=== PATIENT | female | born 1970 | race Caucasian/White ===

== ENCOUNTER 2017-06-05 13:23 | Emergency (ER) | payer MEDICAID ==
--- NOTE | 2017-06-05 13:30 | Emergency Department Record ---
History of Present Illness - General Chief Complaint: Abdominal Pain Stated Complaint: ABD PAIN Time Seen by Provider: 06/05/17 13:29 - Related Data Home Medications Medication Instructions Recorded Confirmed Last Taken Amitriptyline HCl 150 mg PO DAILY 06/05/17 06/05/17 1 Day Ago ~06/04/17 Atorvastatin Calcium [Lipitor] 10 mg PO DAILY 06/05/17 06/05/17 1 Day Ago ~06/04/17 Escitalopram Oxalate [Lexapro] 20 mg PO DAILY 06/05/17 06/05/17 1 Day Ago ~06/04/17 Losartan Potassium [Cozaar] 50 mg PO DAILY 06/05/17 06/05/17 1 Day Ago ~06/04/17 Previous Rx's Medication Instructions Recorded Dicyclomine HCl [Bentyl] 10 mg PO Q8H #20 cap 06/05/17 Hydrocodone/Acetaminophen [[place] 1 each PO Q6HR #6 tablet 06/05/17 5-325 Tablet] Prednisone [Prednisone 20Mg] 20 mg PO BID #10 tab 06/05/17 Allergies Allergy/AdvReac Type Severity Reaction Status Date / Time Fish Containing Products Allergy SWELLING Verified 06/05/17 13:36 (GENERAL) prochlorperazine Allergy HYPERSENSIT Verified 06/05/17 13:36 [From Compazine] IVITY Sulfa (Sulfonamide Allergy HIVES Verified 06/05/17 13:36 Antibiotics) sulfamethoxazole Allergy HIVES Verified 06/05/17 13:36 [From Bactrim] trimethoprim [From Bactrim] Allergy HIVES Verified 06/05/17 13:36 Medical Decision Making - Lab Data Result diagrams: 06/05/17 13:57 06/05/17 13:57 Disposition Clinical Impression: Diarrhea, RLQ abdominal pain, Colitis, Viral syndrome Disposition: Home, Self-Care Condition: (2) Stable Instructions: Acute Diarrhea (ED) Additional Instructions: clear liquids for 24 hours follow up with family in 2 days or return to ED if worse bentyl three times aday Prescriptions: Hydrocodone/Acetaminophen [[place] 5-325 Tablet] 1 each PO Q6HR #6 tablet Dicyclomine HCl [Bentyl] 10 mg PO Q8H #20 cap Prednisone [Prednisone 20Mg] 20 mg PO BID #10 tab Forms: Patient Portal Access Quality - Quality Measures Quality Measures: N/A - Blood Pressure Screening Does Patient Have Any of the Following: No Blood Pressure Classification: Pre-Hypertensive BP Reading Systolic Measurement: 146 Diastolic Measurement: 89 Screening for High Blood Pressure: < Pre-Hypertensive BP, F/U Documented > [ G8950] Pre-Hypertensive Follow-up Interventions: Referral to alternative/primary care provider.
--- NOTE | 2017-06-05 13:51 | Emergency Department Record ---
History of Present Illness - General Chief Complaint: Abdominal Pain Stated Complaint: ABD PAIN Time Seen by Provider: 06/05/17 13:29 Source: Patient, RN notes reviewed Mode of Arrival: Ambulatory - History of Present Illness Initial Comments: diarrhea for 4 days 15 times per day. No vomiting and she does have nausea. Ate cereal today. No antibiotic use in one month. No friends of family with diarrhea. bilateral lower abd pain. Patient at [place] urgent [facility] and sent to ED for a CT scan. Onset/Timin -: Days(s) Location: Diffuse, LUQ, RUQ, LLQ, RLQ Severity: Moderate Quality: Aching Consistency: Constant Improves With: Nothing Worsens With: Nothing - Related Data Patient : No (hyster) Home Medications Medication Instructions Recorded Confirmed Last Taken Amitriptyline HCl 150 mg PO DAILY 06/05/17 06/05/17 1 Day Ago ~06/04/17 Atorvastatin Calcium [Lipitor] 10 mg PO DAILY 06/05/17 06/05/17 1 Day Ago ~06/04/17 Escitalopram Oxalate [Lexapro] 20 mg PO DAILY 06/05/17 06/05/17 1 Day Ago ~06/04/17 Losartan Potassium [Cozaar] 50 mg PO DAILY 06/05/17 06/05/17 1 Day Ago ~06/04/17 Previous Rx's Medication Instructions Recorded Dicyclomine HCl [Bentyl] 10 mg PO Q8H #20 cap 06/05/17 Hydrocodone/Acetaminophen [[place] 1 each PO Q6HR #6 tablet 06/05/17 5-325 Tablet] Prednisone [Prednisone 20Mg] 20 mg PO BID #10 tab 06/05/17 Allergies Allergy/AdvReac Type Severity Reaction Status Date / Time Fish Containing Products Allergy SWELLING Verified 06/05/17 13:36 (GENERAL) prochlorperazine Allergy HYPERSENSIT Verified 06/05/17 13:36 [From Compazine] IVITY Sulfa (Sulfonamide Allergy HIVES Verified 06/05/17 13:36 Antibiotics) sulfamethoxazole Allergy HIVES Verified 06/05/17 13:36 [From Bactrim] trimethoprim [From Bactrim] Allergy HIVES Verified 06/05/17 13:36 Travel Screening - Travel/Exposure Within Last 30 Days Have you traveled within the last 30 days?: No - Travel/Exposure Within Last Year Have you traveled outside the [place] in the last year?: No - Additonal Travel Details Have you been exposed to anyone with a communicable illness?: No - Travel Symptoms Symptom Screening: None Review of Systems Reviewed: No additional complaints except as noted below Constitutional: Reports: As per HPI. Denies: Chills, Fever, Malaise, Night sweats, Weakness, Weight change Eyes: Reports: As per HPI. Denies: Eye discharge, Eye pain, Photophobia, Vision change ENT: Reports: As per HPI. Denies: Congestion, Dental pain, Ear pain, Epistaxis , Hearing loss, Throat pain Respiratory: Reports: As per HPI. Denies: Cough, Dyspnea, Hemoptysis, Stridor, Wheezes Cardiovascular: Reports: As per HPI. Denies: Arrhythmia, Chest pain, Dyspnea on exertion, Edema, Murmurs, Orthopnea, Palpitations, Paroxysmal nocturnal dyspnea, Rheumatic Fever, Syncope Endocrine: Reports: As per HPI. Denies: Fatigue, Heat or cold intolerance, Polydipsia, Polyuria Gastrointestinal: Reports: As per HPI, Abdominal pain, Diarrhea. Denies: Constipation, Hematemesis, Hematochezia, Melena, Nausea, Vomiting Genitourinary: Reports: As per HPI. Denies: Abnormal menses, Discharge, Dyspareunia, Dysuria, Frequency, Hematuria, Incontinence, Retention, Urgency Musculoskeletal: Reports: As per HPI. Denies: Arthralgia, Back pain, Gout, Joint swelling, Myalgia, Neck pain Skin: Reports: As per HPI. Denies: Bruising, Change in color, Change in hair/ nails, Lesions, Pruritus, Rash Neurological: Reports: As per HPI. Denies: Abnormal gait, Confusion, Headache, Numbness, Paresthesias, Seizure, Tingling, Tremors, Vertigo, Weakness Psychiatric: Reports: As per HPI. Denies: Anxiety, Auditory hallucinations, Depression, Homicidal thoughts, Suicidal thoughts, Visual hallucinations Hematological/Lymphatic: Reports: As per HPI. Denies: Anemia, Blood Clots, Easy bleeding, Easy bruising, Swollen glands Past Medical History - SOCIAL HISTORY Smoking Status: Current every day smoker Alcohol Use: Rare Drug Use: None - RESPIRATORY Hx Respiratory Disorders: No - CARDIOVASCULAR Hx Hypertension: Yes - NEURO Hx Headaches: Yes (migraines) - GI Hx Abdominal Pain: Yes Hx Reflux: Yes - Hx Genitourinary Disorders: No - ENDOCRINE Hx Diabetes: No Hx Thyroid Disease: No - MUSCULOSKELETAL Hx Musculoskeletal Disorders: No - PSYCH Hx Anxiety: Yes Hx Depression: Yes - HEMATOLOGY/ONCOLOGY Hx Anemia: No Hx Blood Disorders: No Hx Bruising: No Hx Cancer: No Family Medical History Any Significant Family History?: Yes Hx Cancer: Father, Mother, Grandparents Hx HTN: Father, Mother, Grandparents Physical Exam - General General Appearance: Alert, Oriented x3, Cooperative, No acute distress - Head Head exam: Normal inspection - Eye Eye exam: Normal appearance, PERRL Pupils: Normal accommodation - ENT ENT exam: Normal exam, Mucous membranes moist, Normal external ear exam, Normal orophraynx, TM's normal bilaterally Ear exam: Normal external inspection. negative: External canal tenderness Nasal Exam: Normal inspection. negative: Discharge, Sinus tenderness Mouth exam: Normal external inspection, Tongue normal Teeth exam: Normal inspection. negative: Dental caries Throat exam: Normal inspection. negative: Tonsillar erythema, Tonsillar exudate - Neck Neck exam: Normal inspection, Full ROM. negative: Tenderness - Respiratory Respiratory exam: Normal lung sounds bilaterally. negative: Respiratory distress - Cardiovascular Cardiovascular Exam: Regular rate, Normal rhythm, Normal heart sounds - GI/Abdominal GI/Abdominal exam: Soft, Normal bowel sounds, Tenderness (right lower quad pain and some left sided lower abd pain) - Rectal Rectal exam: Deferred - exam: Deferred - Extremities Extremities exam: Normal inspection, Full ROM, Normal capillary refill. negative: Tenderness - Back Back exam: Reports: Normal inspection, Full ROM. Denies: Muscle spasm, Rash noted, Tenderness - Neurological Neurological exam: Alert, Normal gait, Oriented X3, Reflexes normal - Psychiatric Psychiatric exam: Normal affect, Normal mood - Skin Skin exam: Dry, Intact, Normal color, Warm Course Vital Signs 06/05/17 13:25 Temperature 98.7 F Pulse Rate 98 H Respiratory 16 Rate Blood Pressure 146/89 Pulse Ox 97 - Reevaluation(s) Reevaluation #1: Patient having intermittent abdominal pain and CT of abd shows thickening of the cecum and inflamatory changes 06/05/17 15:07 06/05/17 15:17 06/05/17 15:34 Reevaluation #2: feeling better 06/05/17 16:33 Medical Decision Making - Data Complexity MDM Data: Labs Ordered and/or Reviewed (wbc 12,500), X-Ray Ordered and/or Reviewed (CT thickening near cecum, inflamatory changes) - Lab Data Result diagrams: 06/05/17 13:57 06/05/17 13:57 Disposition Clinical Impression: RLQ abdominal pain, Colitis, Viral syndrome Diarrhea Qualifiers: Diarrhea type: unspecified type Qualified Code(s): R19.7 - Diarrhea, unspecified Disposition: Home, Self-Care Condition: (2) Stable Instructions: Acute Diarrhea (ED) Additional Instructions: clear liquids for 24 hours follow up with family in 2 days or return to ED if worse bentyl three times aday Prescriptions: Hydrocodone/Acetaminophen [[place] 5-325 Tablet] 1 each PO Q6HR #6 tablet Dicyclomine HCl [Bentyl] 10 mg PO Q8H #20 cap Prednisone [Prednisone 20Mg] 20 mg PO BID #10 tab Forms: Patient Portal Access Time of Disposition: 16:36 Quality - Quality Measures Quality Measures: N/A - Blood Pressure Screening Does Patient Have Any of the Following: No Blood Pressure Classification: Pre-Hypertensive BP Reading Systolic Measurement: 146 Diastolic Measurement: 89 Screening for High Blood Pressure: < Pre-Hypertensive BP, F/U Documented > [ G8950] Pre-Hypertensive Follow-up Interventions: Referral to alternative/primary care provider.
[2017-06-05] MEDS ORDERED: 0.9 % SODIUM CHLORIDE 1,000 ML BAG IV ONE (13:52)
[2017-06-05] MEDS ORDERED: ONDANSETRON HCL IV 4 MG/2 ML VIAL IVP ONE (14:03)
[2017-06-05 14:07] LABS: BASO % 0.3 % (0-6); EOS % 1.5 % (0-6); GRAN % 63.1 % (47-80); HEMATOCRIT 44.4 % (35.0-47.0); HEMOGLOBIN 15.1 gm/dl (11.6-16.0); LYMPH % 26.7 % (16-45); MEAN CORPUSCULAR HEMOGLOBIN 30.9 pg (27-33); MEAN PLATELET VOLUME 9.7 fl (7.4-10.4); MONO % 8.4 % (0-9); PLATELET COUNT 331 K/uL (130-400); RED BLOOD COUNT 4.88 M/uL (3.80-5.40); RED CELL DISTRIBUTION WIDTH 13.9 % (11.5-14.5); WHITE BLOOD COUNT W/O DIFF 12.5 K/uL (4.2-12.2)
[2017-06-05 14:15] LABS: URINE APPEARANCE CLEAR; URINE BILIRUBIN NEGATIVE (NEGATIVE); URINE BLOOD NEGATIVE (NEGATIVE); URINE COLOR YELLOW; URINE GLUCOSE (UA) NEGATIVE (NEGATIVE); URINE KETONE NEGATIVE (NEGATIVE); URINE LEUKOCYTE ESTERASE NEGATIVE (NEGATIVE); URINE NITRITE NEGATIVE (NEGATIVE); URINE PROTEIN NEGATIVE (NEGATIVE); URINE UROBILINOGEN 0.2 E.U./dL (0.20 - 1.00)
[2017-06-05 14:21] LABS: BLOOD UREA NITROGEN 14 mg/dL (6-20); CREATININE 0.7 mg/dL (0.5-0.9); EST GLOMERULAR FILTRATION RATE > 60 mL/min
[2017-06-05 14:22] LABS: TOTAL PROTEIN 7.3 g/dL (6.6-8.7)
[2017-06-05 14:24] LABS: GLUCOSE,RANDOM 93 mg/dL (74-109)
[2017-06-05 14:26] LABS: ALBUMIN 4.5 g/dL (4.0-5.0); ALKALINE PHOSPHATASE 111 U/L (35-104); ALT/SGPT 41 U/L (<33); AST/SGOT 20 U/L (10.0-35.0); LIPASE 24 U/L (13-60)
[2017-06-05 14:30] LABS: BILIRUBIN,DIRECT < 0.2 mg/dL (0-0.3)
[2017-06-05] MEDS ORDERED: METHYLPREDNISOLONE SOD 40MG/VIAL IVP ONE (15:23)
[2017-06-05] MEDS ORDERED: KETOROLAC 30 MG/ML VIAL IVP ONE (15:30)
[2017-06-05] MEDS ORDERED: DICYCLOMINE HCL 10 MG/ML AMPUL IM ONE (15:30)
--- NOTE | 2017-06-06 23:39 | CT SCAN REPORT ---
EXAM: CT SCAN ABDOMEN/PELVIS WO CONTRAST HISTORY: PATIENT HAS GENERALIZED ABDOMINAL PAIN AND DIARRHEA. TECHNIQUE: Serial axial CT scan of the abdomen and pelvis was performed at 2.5 mm intervals from the dome of the diaphragm down to the pubic symphysis without the use of intravenous or oral contrast. No comparison studies area available. FINDINGS: Lung windows of the lung bases demonstrate linear subsegmental atelectasis and/or scarring at the left lung base. No focal consolidation or pleural effusion is identified. The visualized heart size and contour is within normal limits. Minimal pericardial fluid is noted. The liver, spleen, pancreas, bilateral adrenal glands, and gallbladder are unremarkable. There is no CT evidence of hydronephrosis or hydroureter. No renal or ureteral calculi are noted. The contour, caliber, of the noncontrasted abdominal aorta is within normal limits. There is no CT evidence of retroperitoneal, pelvic, or inguinal lymphadenopathy. The bowel gas pattern is nonobstructive. There is thickening of the cecal wall extending into the mid ascending colon. There is thickening of the distal terminal ileal wall. There is fatty proliferation of the ascending colon and cecal wall as well. Pericolonic fat stranding surrounding the cecum is also identified. These findings suggest inflammatory changes. Postoperative changes of the appendix are identified. Therefore, I suspect these findings are likely related to infectious vs. inflammatory etiologies. There is no CT evidence of free intraperitoneal fluid or free intraperitoneal air. The urinary bladder is unremarkable. The uterus is absent. Bone windows demonstrate no CT evidence of a fracture or dislocation of the visualized osseous structures. IMPRESSION: THERE IS THICKENING OF THE CECAL WALL EXTENDING INTO THE MID ASCENDING COLON. THERE IS FAT INFILTRATION INTO THE CECAL WALL EXTENDING INTO THE MID ASCENDING COLON WELL. PERICOLONIC FAT STRANDING IS IDENTIFIED. THICKENING OF THE DISTAL TERMINAL ILEUM IS ALSO IDENTIFIED. THESE FINDINGS SUGGEST INFECTIOUS VS. INFLAMMATORY ETIOLOGIES. CLINICAL CORRELATION FOR ULCERATIVE COLITIS AND/OR CROHN'S DISEASE IS RECOMMENDED. JOB NUMBER: [id number] [facility]
== END 2017-06-05 16:51 | disposition home or self-care (01) ==
LOC: ER 13:23
DX: K52.9 Noninfective gastroenteritis and colitis, unspecified (principal); R10.31 Right lower quadrant pain; B34.9 Viral infection, unspecified; R11.0 Nausea; F17.210 Nicotine dependence, cigarettes, uncomplicated
CPT/HCPCS: 99284 ×2; 96374; 96372; 96375; 96361; 83690; 85025; 80076; 80048; 81003; 87427; 87493; 74176; J1885; J2405; J2920; J7030

== ENCOUNTER 2017-11-10 16:30 | Emergency (ER) | payer MEDICAID ==
[2017-11-10] MEDS ORDERED: KETOROLAC 30 MG/ML VIAL IM ONE (16:49)
--- NOTE | 2017-11-10 16:58 | Emergency Department Record ---
History of Present Illness - General Chief Complaint: Recheck - Other Stated Complaint: carpal tunnel surgery/cant get pain under control Time Seen by Provider: 11/10/17 16:43 Source: Patient Mode of arrival: Ambulatory Limitations: No limitations - History of Present Illness Initial Comments: The patient is here due to R wrist and hand pain. She had carpal tunnel surgery yesterday at [facility] by Dr. Smith. Now the R wrist and hand are very painful and swollen. She has had carpal tunnel surgery on the L wrist in the recent past and it was not like this. She denies any finger numbness but her hand does feel swollen. The wound had been draining per the patient and she did soak thru her initial bandage but now the wound is dry. MD Complaint: Wound re-check Onset/Timin -: Days(s) Initial Visit For: Other Returns Today for: Wound recheck Symptoms Since Prior Visit: Worsening pain Associated Symptoms: None Treatments Prior to Arrival: Dressings - Related Data Home Medications Medication Instructions Recorded Confirmed Last Taken Acetaminop W/ Codeine 300/30Mg 1 tab PO ASDIR 11/10/17 11/10/17 11/10/17 [Tylenol with Codeine #3] Ibuprofen [Ibu] 600 mg PO ASDIR 11/10/17 11/10/17 11/10/17 12:00 Allergies Allergy/AdvReac Type Severity Reaction Status Date / Time Fish Containing Products Allergy SWELLING Verified 11/10/17 16:36 (GENERAL) prochlorperazine Allergy HYPERSENSIT Verified 11/10/17 16:36 [From Compazine] IVITY Sulfa (Sulfonamide Allergy HIVES Verified 11/10/17 16:36 Antibiotics) sulfamethoxazole Allergy HIVES Verified 11/10/17 16:36 [From Bactrim] trimethoprim [From Bactrim] Allergy HIVES Verified 11/10/17 16:36 Travel Screening - Travel/Exposure Within Last 30 Days Have you traveled within the last 30 days?: No - Travel/Exposure Within Last Year Have you traveled outside the [place] in the last year?: No - Additonal Travel Details Have you been exposed to anyone with a communicable illness?: No - Travel Symptoms Symptom Screening: None Review of Systems Constitutional: Denies: Chills, Fever Eyes: Denies: Eye discharge ENT: Denies: Congestion Respiratory: Denies: Cough, Dyspnea Past Medical History - SOCIAL HISTORY Smoking Status: Current every day smoker Alcohol Use: Occasional Drug Use: None - RESPIRATORY Hx Respiratory Disorders: No - CARDIOVASCULAR Hx Cardio Disorders: Yes Hx Hypertension: Yes - NEURO Hx Neuro Disorders: Yes Hx Headaches: Yes (migraines) - GI Hx GI Disorders: Yes Hx Abdominal Pain: Yes Hx Reflux: Yes - Hx Genitourinary Disorders: No - ENDOCRINE Hx Endocrine Disorders: Yes Hx Diabetes: No Hx Thyroid Disease: No - MUSCULOSKELETAL Hx Musculoskeletal Disorders: No - PSYCH Hx Psych Problems: Yes Hx Anxiety: Yes Hx Depression: Yes - HEMATOLOGY/ONCOLOGY Hx Hematology/Oncology Disorders: No Hx Anemia: No Hx Blood Disorders: No Hx Bruising: No Hx Cancer: No Family Medical History Any Significant Family History?: Yes Hx Cancer: Father, Mother, Grandparents Hx HTN: Father, Mother, Grandparents Physical Exam - General General Appearance: Alert, Oriented x3, Cooperative, No acute distress - Head Head exam: Atraumatic, Normocephalic, Normal inspection - Eye Eye exam: Normal appearance, PERRL - Extremities Extremities exam: Normal capillary refill, Tenderness, Other (There is no warmth or erythema or any signs of any infection.). negative: Normal inspection (There is a well approximated wound to the anterior wrist with bruising to the palm and distal anterior forearm. The hand is very minimally swollen. The patient does have normal sensation to the R hand and no pain with passive ROM of her fingers and thumb. She is not able to fully grasp with the R hand due to pain. The bruising at this time is very mild to the anterior wrist and palm and forearm area.), Full ROM, Joint swelling Image of Full Body: 1 - Area of mild bruising and tenderness. - Neurological Neurological exam: Alert. negative: Motor sensory deficit Course Vital Signs 11/10/17 16:40 Temperature 98.8 F Pulse Rate 101 H Respiratory 18 Rate Blood Pressure 165/100 Pulse Ox 94 L - Reevaluation(s) Reevaluation #1: The patient is doing better after the Toradol. I did discuss the issues with Dr. Smith and he will try to have the patient seen in his office tomorrow or Wednesday. He does agree with the plan to discharge for home. 11/10/17 17:24 Reevaluation #2: The patient is doing better at this time. She does have normal sensation to her fingers and thumb. There is no pain with passive ROM of the fingers and thumb. I do not see any evidence of a compartment syndrome at this time. I also have discussed the findings at length with Dr. Smith and he is going to have the patient seen in his office by his partner tomorrow or Wednesday. 11/10/17 17:46 Disposition Disposition: Discharge Clinical Impression: Post-op pain Disposition: Home, Self-Care Condition: (2) Stable Instructions: Acute Wound Care (ED) Additional Instructions: Please continue the ice and elevation as directed. Please continue your pain medicines as directed. Please be seen in Dr. Salazar's office tomorrow or Wednesday. Return to the ER for any worsening symptoms. Forms: Patient Portal Access Time of Disposition: 17:45 Quality - Quality Measures Quality Measures: N/A - Blood Pressure Screening View Details: Yes Does Patient Have Any of the Following: No Blood Pressure Classification: Hypertensive Reading Systolic Measurement: 152 Diastolic Measurement: 94 Screening for High Blood Pressure: < First Hypertensive BP, F/U Documented > [ G8950] First Hypertensive Follow-up Interventions: Referral to alternative/primary care provider.
[2017-11-10] MEDS ORDERED: ONDANSETRON 4 MG ODT TABLET SL ONE (17:22)
[2017-11-10] MEDS ORDERED: HYDROCODONE/APAP 5/325MG TABLET PO ONE ×2 (17:22→17:43)
== END 2017-11-10 17:55 | disposition home or self-care (01) ==
LOC: ER 16:30
DX: G89.18 Other acute postprocedural pain (principal); M25.531 Pain in right wrist; I10 Essential (primary) hypertension; F17.210 Nicotine dependence, cigarettes, uncomplicated
CPT/HCPCS: 96372; 99283; 99284; J1885